=== PATIENT | male | born 1945 | race African-American/Black ===

== ENCOUNTER 2016-08-03 12:25 | Inpatient (IN) | payer MEDICARE ==
[2016-08-03 12:31] VITALS: BMI 27.4
--- NOTE | 2016-08-03 12:49 | PDOC ---
History of Present Illness - General History Source: Patient Exam Limitations: No Limitations - History of Present Illness Initial Comments: 08/03/16 13:18 The patient is a 71 year old male, with a significant past medical history of CAD s/p stents (x2), HTN and HLD, who presents to the emergency department with chest pain and nausea. He describes his chest pain as a squeezing pressure and rates the severity a 7/10. He states that he took nitroglycerine after the onset of the pain, which helped relieve some of the pain and currently rates it a 5/[address] Denson (community liaison) sent the patient to the ED for admission. He states that he takes a daily aspirin. The patient denies shortness of breath, headache and dizziness. Denies fever, chills, vomit, diarrhea and constipation. Denies dysuria, frequency, urgency and hematuria. Allergies: None Past surgical history: None reported Social history: No alcohol, tobacco or drug use reported <Harshad Francis - Last Filed: 08/03/16 13:17> - General History Source: Patient, Old Records Exam Limitations: No Limitations <Deb Whatley - Last Filed: 08/03/16 14:21> - General Chief Complaint: Chest Pain Stated Complaint: CHEST PAIN Time Seen by Provider: 08/03/16 12:48 Past History <Harshad Francis - Last Filed: 08/03/16 13:17> - Past Medical History Cancer: Yes (2 SENTS 2013) HTN: Yes Hypercholesterolemia: Yes - Surgical History Cardiac Surgery: Yes (card stent) - Psycho/Social/Smoking Cessation Hx Anxiety: No Suicidal Ideation: No Smoking History: Never smoked Have you smoked in the past 12 months: No Information on smoking cessation initiated: No Hx Alcohol Use: No Drug/Substance Use Hx: No Substance Use Type: None <Deb Whatley - Last Filed: 08/03/16 14:21> - Past Medical History Allergies/Adverse Reactions: Allergies Allergy/AdvReac Type Severity Reaction Status Date / Time No Known Allergies Allergy Verified 08/03/16 12:27 Home Medications: Ambulatory Orders Alirocumab [Praluent Pen] 75 mg SQ DAILY 02/06/16 Aspirin [ASA -] 81 mg PO DAILY 02/06/16 Clopidogrel Bisulfate [Plavix -] 75 mg PO DAILY 02/06/16 Isosorbide Mononitrate [Imdur -] 30 mg PO DAILY 02/06/16 Levalbuterol Tartrate [Xopenex Hfa] 15 gm IH DAILY 02/06/16 Losartan Potassium 25 mg PO DAILY 02/06/16 Nifedipine [Nifedical Xl] 60 mg PO DAILY 02/06/16 Review of Systems - Review of Systems Able to Perform ROS?: Yes Comments:: 08/03/16 13:18 GENERAL/CONSTITUTIONAL: No fever or chills. No weakness. HEAD, EYES, EARS, NOSE AND THROAT: No change in vision. No ear pain or discharge. No sore throat. CARDIOVASCULAR: (+) Chest pain. No shortness of breath RESPIRATORY: No cough, wheezing, or hemoptysis. GASTROINTESTINAL: (+) Nausea. No vomiting, diarrhea or constipation. GENITOURINARY: No dysuria, frequency, or change in urination. MUSCULOSKELETAL: No joint or muscle swelling or pain. No neck or back pain. SKIN: No rash NEUROLOGIC: No headache, vertigo, loss of consciousness, or change in strength/ sensation. ENDOCRINE: No increased thirst. No abnormal weight change HEMATOLOGIC/LYMPHATIC: No anemia, easy bleeding, or history of blood clots. ALLERGIC/IMMUNOLOGIC: No hives or skin allergy. <Harshad Francis - Last Filed: 08/03/16 13:17> *Physical Exam - Vital Signs Last Vital Signs Temp Pulse Resp BP Pulse Ox 97.8 F 76 18 151/78 100 08/03/16 12:28 08/03/16 12:28 08/03/16 12:28 08/03/16 12:28 08/03/16 12:28 - Physical Exam Comments: 08/03/16 13:18 GENERAL: Awake, alert, and fully oriented, in no acute distress HEAD: No signs of trauma, normocephalic, atraumatic EYES: PERRLA, EOMI, sclera anicteric, conjunctiva clear ENT: Auricles normal inspection, hearing grossly normal, nares patent, oropharynx clear without exudates. Moist mucosa NECK: Normal ROM, supple, no lymphadenopathy, JVD, or masses LUNGS: No distress, speaks full sentences, clear to auscultation bilaterally HEART: Regular rate and rhythm, normal S1 and S2, no murmurs, rubs or gallops, peripheral pulses normal and equal bilaterally. ABDOMEN: Soft, nontender, normoactive bowel sounds. No guarding, no rebound. No masses EXTREMITIES: Normal inspection, Normal range of motion, no edema. No clubbing or cyanosis. NEUROLOGICAL: Cranial nerves II through XII grossly intact. Normal speech, normal gait, no focal sensorimotor deficits SKIN: Warm, Dry, normal turgor, no rashes or lesions noted. <Harshad Francis - Last Filed: 08/03/16 13:17> - Vital Signs Last Vital Signs Temp Pulse Resp BP Pulse Ox 97.8 F 76 18 151/78 100 08/03/16 12:28 08/03/16 12:28 08/03/16 12:28 08/03/16 12:28 08/03/16 12:28 <Deb Whatley - Last Filed: 08/03/16 14:21> ED Treatment Course - LABORATORY CBC & Chemistry Diagram: 08/03/16 13:20 08/03/16 13:20 <Deb Whatley - Last Filed: 08/03/16 14:21> Medical Decision Making - Medical Decision Making 08/03/16 13:01 71-year-old male with history of hypertension, hyperlipidemia, Coronary artery disease status post stent 2 presents to the emergency department with an episode of chest pain associated with diaphoresis this morning. Differential diagnosis includes but is not limited to: Unstable angina, ACS, pneumonia, pneumothorax, GERD, electrolyte abnormality, toxic/metabolic derangement. Plan: 1. EKG 2. Labs 3. Lovenox 4. Admit to telemetry 5. Observe and reevaluate 08/03/16 14:20 Addendum: Labs were reviewed and are noted in the EMR. His troponin is negative while the CK is 426. CXR is unchanged from prior as is his EKG. I have endorsed this patient to Dr. Carrasco. <Deb Whatley - Last Filed: 08/03/16 14:21> *DC/Admit/Observation/Transfer - Attestations Scribe Attestion: 08/03/16 13:18 Documentation prepared by Harshad Francis, acting as registered medical transcriptionist for Deb Whatley MD <Harshad Francis - Last Filed: 08/03/16 13:17> - Discharge Dispostion Admit: Yes - Attestations Physician Attestion: 08/03/16 13:03 I, Dr. Deb Whatley, attest that the scribes documentation that appears above has been prepared under my direction and personally reviewed by me in its entirety. I confirmed that the note above accurately reflects all work, treatment, procedures, and medical decision-making performed by me. <Deb Whatley - Last Filed: 08/03/16 14:21> Diagnosis at time of Disposition: Precordial chest pain - Discharge Dispostion Condition at time of disposition: Stable
[2016-08-03] MEDS ORDERED: ASPIRIN 81 MG CHEWABLE TABLETS PO SCH (13:00)
[2016-08-03] MEDS ORDERED: NITROGLYCERIN SUBLINGUAL 1/150 0.4 MG TAB SL PRN (13:00)
[2016-08-03 13:24] LABS: BASOPHIL 0.3 % (0-2.0); EOSINOPHIL 3.4 % (0-4.5); MCH 26.5 pg (25.7-33.7); MCHC 33.1 g/dl (32.0-35.9); MEAN CELL VOLUME 80.1 fl (80-96); MEAN PLT VOLUME 6.7 fl (7.5-11.1); NEUTROPHILS 76.4 % (42.8-82.8); PLATELET COUNT 182 K/MM3 (134-434); RDW 17.1 % (11.9-15.9); WHITE BLOOD COUNT 5.8 K/mm3 (4.0-10.0)
[2016-08-03 13:45] LABS: INR 0.96 (0.82-1.09); PROTHROMBIN TIME (PATIENT) 10.6 SEC (9.98-11.88)
[2016-08-03] MEDS ORDERED: ENOXAPARIN NA (PORCINE) 80 MG/0.8 ML DISP.SYRIN SQ ONE (13:46)
[2016-08-03] MEDS ORDERED: ASPIRIN 81 MG CHEWABLE TABLETS ONE (13:46)
[2016-08-03 13:48] LABS: ACTIVATED PTT 29.5 SECONDS (26.9-34.4)
[2016-08-03 13:50] LABS: ALBUMIN 3.6 g/dl (3.4-5.0); ANION GAP 10 (8-16); BILIRUBIN,TOTAL 0.3 mg/dL (0.2-1.0); CALCIUM 8.5 mg/dL (8.5-10.1); CO2 20 mmol/L (21-32); CREATININE 2.1 mg/dL (0.7-1.3); GLUCOSE,RANDOM 95 mg/dL (74-106); MAGNESIUM 2.2 mg/dL (1.8-2.4); PHOSPHOROUS 2.6 mg/dL (2.5-4.9); SGOT/AST 27 U/L (15-37); SGPT/ALT 22 U/L (12-78); TOT PROT 6.8 g/dl (6.4-8.2)
[2016-08-03 13:52] LABS: ALK PHOS 64 U/L (45-117); TROPONIN I < 0.02 ng/ml (0.00-0.05)
[2016-08-03] MEDS: ENOXAPARIN NA (PORCINE) 80 MG/0.8 ML DISP.SYRIN SQ SCH (13:52)
--- NOTE | 2016-08-03 14:17 | EKG ---
Test Reason : Blood Pressure : / mmHG Vent. Rate : 066 BPM Atrial Rate : 066 BPM P-R Int : 160 ms QRS Dur : 092 ms QT Int : 406 ms P-R-T Axes : 050 -19 048 degrees QTc Int : 425 ms NORMAL SINUS RHYTHM NONSPECIFIC T WAVE ABNORMALITY ABNORMAL ECG WHEN COMPARED WITH ECG OF 06-FEB-2016 12:49, NO SIGNIFICANT CHANGE WAS FOUND Confirmed by RANDOLPH DOMINGO MD ([id number]) on 08/03/2016 2:17:26 PM Referred By: Confirmed By:RANDOLPH DOMINGO MD
--- NOTE | 2016-08-03 16:39 | CON.CARD ---
Cardiology Consult (text) - Consultation Consultation Note: Brief Cardiology Summary Mr. Henry is patient of my office partner Dr. Villalta w/ known CAD w/p ISR of LCx 2014 with JOCELYN. Recent negative nuclear stress test in early July. Presented to office today with substernal CP at rest, associated with "cold sweat" which was almost completely relieved with SLNTG x1. In office, vitals normal with ECG showing stable, chronic NSST changes inferiorly and laterally. He was in sinus with no evidence of CHF on exam. I referred him to the ER with escalating/unstable angina. Labs so far show mildly elevated CK with creatinine slightly above his baseline (1.7, now 2.1). Plan: 1. To be admitted to telemetry for serial cardiac enzymes and anticoagulation ( given Lovenox x 1 dose in ER). 2. To continue ASA and Plavix 3. Echo for EF assessment (known to be normal). 4. Hydrate gently overnight, renal consult for further reccs on optimization prior to planned cath. 5. Likely transfer for cath tomorrow pending above diagnostics and medical optimization.
[2016-08-03] MEDS: SODIUM CHLORIDE 1,000 ML IV SCH (16:42)
[2016-08-03] MEDS ORDERED: SODIUM CHLORIDE 1,000 ML IV STA (18:06)
[2016-08-03 20:11] LABS: URINE APPEARANCE CLEAR; URINE BILIRUBIN NEGATIVE (NEGATIVE); URINE COLOR COLORLESS; URINE GLUCOSE (UA) NEGATIVE (NEGATIVE); URINE KETONE 1+ (NEGATIVE); URINE LEUK ESTERASE NEGATIVE (NEGATIVE); URINE NITRITE NEGATIVE (NEGATIVE); URINE UROBILINOGEN NEGATIVE E.U./dl (0.2-1.0)
[2016-08-03 20:13] LABS: URINE BLOOD 1+ (NEGATIVE); URINE PROTEIN 1+ (NEGATIVE)
[2016-08-03 21:38] LABS: URINE HYALINE CAST 1 /lpf
[2016-08-03 21:55] LABS: TROPONIN I < 0.02 ng/ml (0.00-0.05)
--- NOTE | 2016-08-04 02:19 | HP ---
Admitting History and Physical - Past Medical History Cardiovascular: Yes: CAD, HTN, Hyperlipdemia, NC Pulmonary: Yes: Asthma - Past Surgical History Past Surgical History: Yes: Stent - Smoking History Smoking history: Never smoked Have you smoked in the past 12 months: No Aproximately how many cigarettes per day: 0 - Alcohol/Substance Use Hx Alcohol Use: No - Social History ADL: Independent History of Recent Travel: No Home Medications - Allergies Allergies/Adverse Reactions: Allergies Allergy/AdvReac Type Severity Reaction Status Date / Time No Known Allergies Allergy Verified 08/03/16 12:27 - Home Medications Home Medications: Ambulatory Orders Alirocumab [Praluent Pen] 75 mg SQ ASDIR 02/06/16 Aspirin [ASA -] 81 mg PO DAILY 02/06/16 Clopidogrel Bisulfate [Plavix -] 75 mg PO DAILY 02/06/16 Isosorbide Mononitrate [Imdur -] 30 mg PO DAILY 02/06/16 Levalbuterol Tartrate [Xopenex Hfa] 15 gm IH PRN 02/06/16 Losartan Potassium 25 mg PO DAILY 02/06/16 Nifedipine [Nifedical Xl] 120 mg PO DAILY 02/06/16 Nitroglycerin Sublingual [Nitrostat -] 0.4 mg SL PRN PRN 08/03/16 Physical Examination Vital Signs: Vital Signs Temperature 98.4 F 08/03/16 21:31 Pulse Rate 63 08/03/16 21:31 Respiratory Rate 18 08/03/16 21:31 Blood Pressure 148/79 08/03/16 21:31 O2 Sat by Pulse Oximetry (%) 98 08/03/16 21:00
[2016-08-04] MEDS ORDERED: PATIENT'S OWN MEDICATION (NON-FORMULARY) (Levalbuterol Tartrate [Xopenex Hfa] 15 GM) IH SCH (02:30)
[2016-08-04 02:40] LABS: TROPONIN I < 0.02 ng/ml (0.00-0.05)
[2016-08-04 07:37] LABS: MCH 26.6 pg (25.7-33.7); MEAN CELL VOLUME 80.9 fl (80-96); WHITE BLOOD COUNT 4.7 K/mm3 (4.0-10.0)
[2016-08-04 07:38] LABS: BASOPHIL 0.4 % (0-2.0); EOSINOPHIL 5.3 % (0-4.5); MCHC 32.9 g/dl (32.0-35.9); MEAN PLT VOLUME 7.1 fl (7.5-11.1); NEUTROPHILS 59.6 % (42.8-82.8); PLATELET COUNT 199 K/MM3 (134-434); RDW 17.3 % (11.9-15.9)
--- NOTE | 2016-08-04 08:56 | PN ---
Progress Note, Physician History of Present Illness: seen and examined this am in nad. states he is feeling much better from yesterday. states he still has intermittent mild chest pain but significantly improved since yesterday. no new complaints. - Current Medication List Current Medications: Active Medications Aspirin (Asa -) 81 mg PO DAILY [facility] Clopidogrel Bisulfate (Plavix -) 75 mg PO DAILY [facility] Enoxaparin Sodium (Lovenox -) 80 mg SQ ONCE [facility] Last Admin: 08/03/16 13:52 Dose: 80 mg Enoxaparin Sodium (Lovenox -) 80 mg SQ BID [facility] Sodium Chloride (Normal Saline -) 1,000 mls @ 75 mls/hr IV ASDIR [facility] Last Admin: 08/03/16 16:42 Dose: 75 mls/hr Isosorbide Mononitrate (Imdur -) 30 mg PO DAILY [facility] Losartan Potassium (Cozaar -) 25 mg PO DAILY [facility] Nifedipine (Procardia Xl -) 120 mg PO DAILY [facility] Nitroglycerin (Nitrostat -) 0.4 mg SL Q5M PRN PRN Reason: FOR CHEST PAIN Non-Formulary Medication (Levalbuterol Tartrate [Xopenex Hfa]) 15 gm IH PRN [facility] - Objective Vital Signs: Vital Signs Temperature 97.7 F 08/04/16 06:00 Pulse Rate 80 08/04/16 06:00 Respiratory Rate 18 08/04/16 06:00 Blood Pressure 138/82 08/04/16 06:00 O2 Sat by Pulse Oximetry (%) 98 08/03/16 21:00 Constitutional: Yes: Well Nourished, No Distress, Calm Eyes: Yes: WNL, Conjunctiva Clear, EOM Intact, PERRL HENT: Yes: WNL, Atraumatic, Normocephalic Neck: Yes: WNL, Supple, Trachea Midline Cardiovascular: Yes: WNL, Regular Rate and Rhythm, S1, S2. No: Bradycardia, Tachycardia, Pulse Irregular, Bruit, JVD, Gallop, Murmur, Rub, S3, S4, Varicosities Respiratory: Yes: WNL, Regular, CTA Bilaterally. No: Rales, Rhonchi, Wheezes Gastrointestinal: Yes: WNL, Normal Bowel Sounds, Soft. No: Distention, Tenderness Musculoskeletal: Yes: WNL Extremities: Yes: WNL Edema: No Peripheral Pulses WNL: Yes Peripheral Pulses: Left Doralis Pedis: 2+, Right Dorsalis Pedis: 2+ Integumentary: Yes: WNL Neurological: Yes: WNL, Alert, Oriented, Cran Nerves II-XII Intact ...Motor Strength: WNL Psychiatric: Yes: WNL, Alert, Oriented Labs: CBC, BMP 08/04/16 05:40 INR, PTT INR 0.96 (0.82-1.09) 08/03/16 13:20 - ....Imaging Chest X-ray: Report Reviewed, Image Reviewed EKG: Report Reviewed, Image Reviewed Other: Report Reviewed, Image Reviewed (tele-NSR, Sinus bradycardia, no sig arrhythmia) Assessment/Plan 71 year old man with a history of CAD h/o ISR of LCx 2014 with JOCELYN, recent nuclear stress test showed no ischemia, presented to office yesterday with chest pain concerning for unstable angina. Chest pain-unstable angina -trop wnl x 2, ck trended down -no ischemic arrhythmia on tele thus far -creatinine improved today after gentle hydration -nephrology to evaluate -cont ASA and Plavix -pt not on a statin due to h/o rhabdo on statins -cont other current medical regimen -f/up echo if done today -D/w Dr. Gonzalez at [facility], pt is accepted for cardiac cath but will likely be taken directly to the laborer electro[facility]ating tomorrow morning. -as pt likely going for cath tomorrow will continue full AC today, given CKD will start heparin gtt instead of lovenox
[2016-08-04 09:01] LABS: ANION GAP 10 (8-16); CALCIUM 7.8 mg/dL (8.5-10.1); CO2 21 mmol/L (21-32); CREATININE 1.5 mg/dL (0.7-1.3); GLUCOSE,RANDOM 75 mg/dL (74-106); LDL CHOLESTEROL (ONLY SJRH) 85 mg/dL (5-100); MAGNESIUM 2.2 mg/dL (1.8-2.4)
[2016-08-04] MEDS: ENOXAPARIN NA (PORCINE) 80 MG/0.8 ML DISP.SYRIN SQ SCH ×3 (09:33→21:19)
[2016-08-04] MEDS: CLOPIDOGREL BISULFATE 75 MG TABLET (FP) PO SCH (09:34)
[2016-08-04] MEDS: NIFEdipine E.R 60 MG TABLET (UD) PO SCH (09:34)
[2016-08-04] MEDS: LOSARTAN POTASSIUM 25 MG TABLET PO SCH (09:34)
[2016-08-04] MEDS: ISOSORBIDE MONONITRATE 30 MG TAB.SR.24H (FP) PO SCH (09:34)
[2016-08-04] MEDS: ASPIRIN 81 MG CHEWABLE TABLETS PO SCH (09:34)
[2016-08-04] MEDS ORDERED: ISOSORBIDE MONONITRATE 30 MG TAB.SR.24H (FP) PO SCH (10:00)
[2016-08-04] MEDS ORDERED: ASPIRIN 325 MG TABLET PO SCH (10:00)
[2016-08-04] MEDS ORDERED: CLOPIDOGREL BISULFATE 75 MG TABLET (FP) PO SCH (10:00)
[2016-08-04] MEDS ORDERED: NIFEdipine E.R 60 MG TABLET (UD) PO SCH (10:00)
[2016-08-04] MEDS ORDERED: LOSARTAN POTASSIUM 25 MG TABLET PO SCH (10:00)
--- NOTE | 2016-08-04 10:10 | CONSULT ---
Consult - text type - Consultation Consultation Note: Renal Consult for Contrast Nephropathy Prophylaxis This is a 71 year old Gentleman with PMhx of CKD Stage 3 (baseline Cr 1.8 as per pt), CAD, Hypertension, CHF, Hyperlipidemia who presented with substernal chest pain and pressure and found to have Cr of 2.1 and is planned for cardiac cath. Pt knows that he has CKD. + remote history of kidney stones 18 years ago. No hx of recurrent UTI's. No chronic NSAID use. No flank pain. No sympotms of retention. No recent Abx use. Cr improved to 1.5 s/p hydration. No Fever, chills , Abd pain, N/V/D. on IVF currently. No chest pain at this time. Planned for cardiac cath. PMhx: as above Allergies: NKDA Family Hx: NC Social Hx: Non-smoker ROS: as per HPI, all other pertinent ros negative Home Meds: Home Medications Medication Instructions Recorded Alirocumab [Praluent Pen] 75 mg SQ ASDIR 02/06/16 Aspirin [ASA -] 81 mg PO DAILY 02/06/16 Clopidogrel Bisulfate [Plavix -] 75 mg PO DAILY 02/06/16 Isosorbide Mononitrate [Imdur -] 30 mg PO DAILY 02/06/16 Levalbuterol Tartrate [Xopenex Hfa] 15 gm IH PRN 02/06/16 Losartan Potassium 25 mg PO DAILY 02/06/16 Nifedipine [Nifedical Xl] 120 mg PO DAILY 02/06/16 Nitroglycerin Sublingual 0.4 mg SL PRN PRN 08/03/16 [Nitrostat -] Vital Signs Temperature 97.7 F 08/04/16 06:00 Pulse Rate 80 08/04/16 06:00 Respiratory Rate 18 08/04/16 06:00 Blood Pressure 138/82 08/04/16 06:00 O2 Sat by Pulse Oximetry (%) 98 08/03/16 21:00 Intake & Output 08/01/16 08/02/16 08/03/16 08/04/16 23:59 23:59 23:59 23:59 Intake Total 180 750 Output Total 1355 Balance 180 -605 Weight 160 lb Gen: NAD, awake and alert HEENT: NC/AT, Neck Supple, MMM CVS: RRR, No M/R Lungs: CTA, no rales or wheeze Abd: soft NT/ND Ext: No edema, clubbing or cyanosis : No bladder distension Neuro: No focal defects CBC, BMP 08/04/16 05:40 08/04/16 05:40 Current Medications Acetylcysteine (Mucomyst 20 Oral / Inh Use Only*) 1,200 mg PO BID [facility] Aspirin (Asa -) 81 mg PO DAILY [facility] Last Admin: 08/04/16 09:34 Dose: 81 mg Clopidogrel Bisulfate (Plavix -) 75 mg PO DAILY [facility] Last Admin: 08/04/16 09:34 Dose: 75 mg Enoxaparin Sodium (Lovenox -) 80 mg SQ ONCE [facility] Last Admin: 08/03/16 13:52 Dose: 80 mg Enoxaparin Sodium (Lovenox -) 80 mg SQ BID [facility] Last Admin: 08/04/16 09:33 Dose: 80 mg Sodium Chloride (Normal Saline -) 1,000 mls @ 75 mls/hr IV ASDIR [facility] Last Admin: 08/03/16 16:42 Dose: 75 mls/hr Isosorbide Mononitrate (Imdur -) 30 mg PO DAILY [facility] Last Admin: 08/04/16 09:34 Dose: 30 mg Losartan Potassium (Cozaar -) 25 mg PO DAILY [facility] Last Admin: 08/04/16 09:34 Dose: 25 mg Nifedipine (Procardia Xl -) 120 mg PO DAILY [facility] Last Admin: 08/04/16 09:34 Dose: 120 mg Nitroglycerin (Nitrostat -) 0.4 mg SL Q5M PRN PRN Reason: FOR CHEST PAIN Non-Formulary Medication (Levalbuterol Tartrate [Xopenex Hfa]) 15 gm IH PRN [facility] A/P 71 year old Gentleman with PMhx of CKD Stage 3 (baseline Cr 1.8 as per pt), CAD , Hypertension, CHF, Hyperlipidemia who presented with substernal chest pain and pressure and found to have Cr of 2.1 and is planned for cardiac cath. #Acute on Chronic Renal Insufficiency Cr improved s/p Hydration UA with 1+ protein good urine output check Urine studies US to be done as outpatient as pt without symptoms of retention or flank pain continue isotonic saline Dose all meds for Cr Cl less then 50 pt to follow up in the office after discharge #Contrast Nephropathy Risk stratification and prophylaxis Risk of Contrast Injury (> 25% increase in serum Cr) is 12% and risk off immediate dialysis is 0.1% This was discussed with the patient who expressed understanding Prophlaxis with isotonic saline and Mucomyst Trend BUN/Cr up to 72 hours post contrast #Check pain r/o ACS Management as per Cardiology Awaiting transfer for Cardiac Cath #Hypertension Continue ARB and CCB #Anemia Trend CBC Check iron profile as outpatient #Hyperlipidemia Check lipid profile Thank you Will follow Elliot Naidu DO
[2016-08-04] MEDS ORDERED: ACETYLCYSTEINE 20% 200MG/ML 30 ML VIAL *FOR ORAL / INH USE ONLY PO SCH (10:15)
[2016-08-04] MEDS: ACETYLCYSTEINE 20% 200MG/ML 30 ML VIAL *FOR ORAL / INH USE ONLY PO SCH ×2 (10:46→21:21)
[2016-08-04 14:46] LABS: CHOLESTEROL 214 mg/dl
[2016-08-04] MEDS: SODIUM CHLORIDE 1,000 ML IV SCH (21:21)
--- NOTE | 2016-08-05 08:52 | PN ---
Progress Note, Physician History of Present Illness: seen and examined today in nad. continued mild intermittent chest pain overnight and this am. no new complaints. - Current Medication List Current Medications: Active Medications Acetylcysteine (Mucomyst 20 Oral / Inh Use Only*) 1,200 mg PO BID [facility] Stop: 08/05/16 22:01 Last Admin: 08/04/16 21:21 Dose: 1,200 mg Aspirin (Asa -) 81 mg PO DAILY [facility] Last Admin: 08/04/16 09:34 Dose: 81 mg Clopidogrel Bisulfate (Plavix -) 75 mg PO DAILY [facility] Last Admin: 08/04/16 09:34 Dose: 75 mg Enoxaparin Sodium (Lovenox -) 80 mg SQ ONCE [facility] Last Admin: 08/04/16 15:19 Dose: Not Given Enoxaparin Sodium (Lovenox -) 80 mg SQ BID [facility] Last Admin: 08/04/16 21:19 Dose: 80 mg Sodium Chloride (Normal Saline -) 1,000 mls @ 75 mls/hr IV ASDIR [facility] Last Admin: 08/04/16 21:21 Dose: 75 mls/hr Isosorbide Mononitrate (Imdur -) 30 mg PO DAILY [facility] Last Admin: 08/04/16 09:34 Dose: 30 mg Losartan Potassium (Cozaar -) 25 mg PO DAILY [facility] Last Admin: 08/04/16 09:34 Dose: 25 mg Nifedipine (Procardia Xl -) 120 mg PO DAILY [facility] Last Admin: 08/04/16 09:34 Dose: 120 mg Nitroglycerin (Nitrostat -) 0.4 mg SL Q5M PRN PRN Reason: FOR CHEST PAIN Non-Formulary Medication (Levalbuterol Tartrate [Xopenex Hfa]) 15 gm IH PRN [facility] - Objective Vital Signs: Vital Signs Temperature 98.5 F 08/05/16 02:16 Pulse Rate 66 08/05/16 02:16 Respiratory Rate 18 08/05/16 02:16 Blood Pressure 138/76 08/05/16 02:16 O2 Sat by Pulse Oximetry (%) 98 08/04/16 20:35 Constitutional: Yes: Well Nourished, No Distress, Calm Eyes: Yes: WNL, Conjunctiva Clear, EOM Intact, PERRL HENT: Yes: WNL, Atraumatic, Normocephalic Neck: Yes: WNL, Supple, Trachea Midline Cardiovascular: Yes: WNL, Regular Rate and Rhythm, S1, S2. No: Bradycardia, Tachycardia, Pulse Irregular, Bruit, JVD, Gallop, Murmur, Rub, S3, S4, Varicosities Respiratory: Yes: WNL, Regular, CTA Bilaterally. No: Rales, Rhonchi, Wheezes Gastrointestinal: Yes: WNL, Normal Bowel Sounds, Soft. No: Distention, Tenderness Musculoskeletal: Yes: WNL Extremities: Yes: WNL Edema: No Peripheral Pulses WNL: Yes Peripheral Pulses: Left Doralis Pedis: 2+, Right Dorsalis Pedis: 2+ Integumentary: Yes: WNL Neurological: Yes: WNL, Alert, Oriented, Cran Nerves II-XII Intact ...Motor Strength: WNL Psychiatric: Yes: WNL, Alert, Oriented Labs: CBC, BMP 08/04/16 05:40 08/04/16 05:40 INR, PTT INR 0.96 (0.82-1.09) 08/03/16 13:20 - ....Imaging Chest X-ray: Report Reviewed, Image Reviewed EKG: Report Reviewed, Image Reviewed Other: Report Reviewed, Image Reviewed (tele-nsr, sinus marj, no sig arrhythmias) Assessment/Plan 71 year old man with a history of CAD h/o ISR of LCx 2014 with JOCELYN, recent nuclear stress test showed no ischemia, presented to office yesterday with chest pain concerning for unstable angina. Chest pain-unstable angina -trop wnl x 3, ck trended down -no ischemic arrhythmia on tele thus far -creatinine improved after gentle hydration -nephrology evaluation appreciated, given additional fluids and mucomyst -cont ASA and Plavix -cont Lovenox for now -pt not on a statin due to h/o rhabdo on statins -cont other current medical regimen -echo showed normal LV systolic function, small pericard effusion, mild valvular abnl -pt to be transferred to [facility] today for cardiac cath
[2016-08-05 09:46] LABS: ANION GAP 8 (8-16); CALCIUM 7.7 mg/dL (8.5-10.1); CO2 24 mmol/L (21-32); CREATININE 1.8 mg/dL (0.7-1.3); GLUCOSE,RANDOM 90 mg/dL (74-106)
[2016-08-05] MEDS: ASPIRIN 81 MG CHEWABLE TABLETS PO SCH (09:57)
[2016-08-05] MEDS: ENOXAPARIN NA (PORCINE) 80 MG/0.8 ML DISP.SYRIN SQ SCH ×2 (09:57→13:03)
[2016-08-05] MEDS: CLOPIDOGREL BISULFATE 75 MG TABLET (FP) PO SCH (09:58)
[2016-08-05] MEDS: ISOSORBIDE MONONITRATE 30 MG TAB.SR.24H (FP) PO SCH (09:58)
[2016-08-05] MEDS: ACETYLCYSTEINE 20% 200MG/ML 30 ML VIAL *FOR ORAL / INH USE ONLY PO SCH (09:58)
[2016-08-05] MEDS: NIFEdipine E.R 60 MG TABLET (UD) PO SCH (09:58)
[2016-08-05] MEDS: LOSARTAN POTASSIUM 25 MG TABLET PO SCH (09:58)
[2016-08-05 11:08] VITALS: BP 158/94; PULSE 62; TEMP 98.9
--- NOTE | 2016-08-05 12:02 | PN ---
Progress Note (short form) - Note Progress Note: Renal Follow up for CKD/Contrast nephropathy prophylaxis Pt seen and examined at the bedside denies any chest pain today but does have some pressure no sob has been on IVF good urine output Vital Signs Temperature 98.9 F 08/05/16 11:08 Pulse Rate 62 08/05/16 11:08 Respiratory Rate 18 08/05/16 11:08 Blood Pressure 158/94 08/05/16 11:08 O2 Sat by Pulse Oximetry (%) 98 08/05/16 09:00 Intake & Output 08/02/16 08/03/16 08/04/16 08/05/16 23:59 23:59 23:59 23:59 Intake Total 684 410 8161 Output Total 1355 950 Balance 180 -605 150 Weight 160 lb Gen: NAD CVS: RRR, No M/R Lungs: CTA, no rales or wheeze Abd: soft NT/ND Ext: No edema, clubbing or cyanosis CBC, BMP 08/04/16 05:40 08/05/16 09:10 Current Medications Acetylcysteine (Mucomyst 20 Oral / Inh Use Only*) 1,200 mg PO BID [facility] Stop: 08/05/16 22:01 Last Admin: 08/05/16 09:58 Dose: 1,200 mg Aspirin (Asa -) 81 mg PO DAILY [facility] Last Admin: 08/05/16 09:57 Dose: 81 mg Clopidogrel Bisulfate (Plavix -) 75 mg PO DAILY [facility] Last Admin: 08/05/16 09:58 Dose: 75 mg Enoxaparin Sodium (Lovenox -) 80 mg SQ ONCE [facility] Last Admin: 08/04/16 15:19 Dose: Not Given Enoxaparin Sodium (Lovenox -) 80 mg SQ BID [facility] Last Admin: 08/05/16 09:57 Dose: 80 mg Sodium Chloride (Normal Saline -) 1,000 mls @ 75 mls/hr IV ASDIR [facility] Last Admin: 08/04/16 21:21 Dose: 75 mls/hr Isosorbide Mononitrate (Imdur -) 30 mg PO DAILY [facility] Last Admin: 08/05/16 09:58 Dose: 30 mg Losartan Potassium (Cozaar -) 25 mg PO DAILY [facility] Last Admin: 08/05/16 09:58 Dose: 25 mg Nifedipine (Procardia Xl -) 120 mg PO DAILY [facility] Last Admin: 08/05/16 09:58 Dose: 120 mg Nitroglycerin (Nitrostat -) 0.4 mg SL Q5M PRN PRN Reason: FOR CHEST PAIN Non-Formulary Medication (Levalbuterol Tartrate [Xopenex Hfa]) 15 gm IH PRN [facility] A/P 71 year old Gentleman with PMhx of CKD Stage 3 (baseline Cr 1.8 as per pt), CAD , Hypertension, CHF, Hyperlipidemia who presented with substernal chest pain and pressure and found to have Cr of 2.1 and is planned for cardiac cath. #Acute on Chronic Renal Insufficiency Cr is 1.8 (same as outpatient) continue isotonic saline as part of PUJA prophylaxis will follow up as outpatient in the office #Contrast Nephropathy Risk stratification and prophylaxis Risk of Contrast Injury (> 25% increase in serum Cr) is 12% and risk off immediate dialysis is 0.1% This was discussed with the patient who expressed understanding Prophlaxis with isotonic saline and Mucomyst (got 3 doses, last dose this evening) Trend BUN/Cr up to 72 hours post contrast #Check pain r/o ACS for transfer to Cardiac Cath today Elliot Naidu DO
--- NOTE | 2016-08-05 13:36 | EKG ---
Test Reason : Blood Pressure : / mmHG Vent. Rate : 060 BPM Atrial Rate : 060 BPM P-R Int : 184 ms QRS Dur : 092 ms QT Int : 418 ms P-R-T Axes : 068 -22 -09 degrees QTc Int : 418 ms NORMAL SINUS RHYTHM INCOMPLETE RIGHT BUNDLE BRANCH BLOCK BORDERLINE ECG WHEN COMPARED WITH ECG OF 03-AUG-2016 12:44, INCOMPLETE RIGHT BUNDLE BRANCH BLOCK IS NOW PRESENT T WAVE INVERSION NOW EVIDENT IN INFERIOR LEADS NONSPECIFIC T WAVE ABNORMALITY NO LONGER EVIDENT IN LATERAL LEADS Confirmed by MICHOACANO CASTILLO, CLAUDINE ([id number]) on 08/05/2016 1:35:36 PM Referred By: JEREMY MIX Confirmed By:CLAUDINE RÍOS MD
== END 2016-08-05 15:04 | disposition short-term general hospital (02) | DRG 303 ==
LOC: JER 12:25 → JERBED 14:21 → J4W 21:10
PROVIDERS: ADMIT Internal Medicine; ATTEND Internal Medicine
DX: I25.110 Atherosclerotic heart disease of native coronary artery with unstable angina pectoris (principal); I13.0 Hypertensive heart and chronic kidney disease with heart failure and stage 1 through stage 4 chronic kidney disease, or unspecified chronic kidney disease; N17.9 Acute kidney failure, unspecified; E78.5 Hyperlipidemia, unspecified; Z95.5 Presence of coronary angioplasty implant and graft; N18.3 Chronic kidney disease, stage 3 (moderate); I50.9 Heart failure, unspecified; D64.9 Anemia, unspecified
CPT/HCPCS: 36415; 71010-TC; 80048; 80053; 80061; 81003; 81015; 82550; 82553; 83036; 83721; 83735; 84100; 84484; 85025; 85610; 85730; 93005; 93010; 93306-TC; 99283-25